=== PATIENT | male | born 1985 | race Caucasian/White ===

== ENCOUNTER 2023-03-13 18:31 | Observation (INO) ==
[2023-03-13] MEDS ORDERED: ONDANSETRON INJ 2 MG/ML 2 ML VIAL ONE (18:36)
--- NOTE | 2023-03-13 18:56 | XRay Report ---
XR chest 1V portable HISTORY: 38 years-old Male Chest pain, nonspecific acute chest pain COMPARISON: 11/08/2021 TECHNIQUE: AP view of the chest FINDINGS: Cardiac silhouette is enlarged. No pneumothorax, pleural effusion, airspace consolidation or pulmonar y edema. Bones appear grossly intact. IMPRESSION: No acute process. ACT 112: Negative or not required by law. The above report was generated using voice recognition software. It may contain grammatical, syntax o r spelling errors. Electronically signed by: Darci Mathur M.D. 03/13/2023 6:55 PM
[2023-03-13 19:03] LABS: iSTAT Hemoglobin 17.3 g/dl (14.0-18.0); iSTAT Ionized Calcium 1.13 mmol/l (1.12-1.32); iSTAT Potassium 3.4 mmol/L (3.3-5.0)
[2023-03-13 19:04] LABS: Basophils # (auto) 0.06 K/uL (0.00-0.20); Basophils % (auto) 0.4 %; Eosinophils # (auto) 0.26 K/uL (0.00-0.50); Eosinophils % (auto) 1.9 %; Hematocrit (blood only) 50.5 % (42.0-52.0); Hemoglobin 17.2 g/dl (14.0-18.0); Immature Granulocytes # (auto) 0.08 K/uL (0.01-0.20); Immature Granulocytes % (auto) 0.6 %; Lymphocytes # (auto) 2.64 K/uL (1.20-3.40); Mean Corpuscular Hemoglobin 28.6 pg (25.0-34.0); Mean Corpuscular Hgb Conc 34.1 g/dL (32.0-36.0); Mean Corpuscular Volume 83.9 fL (80.0-100.0); Mean Platelet Volume 9.9 fL (9.4-12.4); Monocytes # (auto) 0.85 K/uL (0.11-0.59); Monocytes % (auto) 6.1 %; Neutrophils # (auto) 10.04 K/uL (1.40-6.50); Platelet Count 338 K/uL (130-400); RDW Standard Deviation 39.7 fL (36.4-46.3); Red Blood Count 6.02 M/uL (4.70-6.10); White Blood Count 13.93 K/ul (4.8-10.8)
[2023-03-13 19:18] LABS: Alanine Aminotransferase 38 U/L (7-52); Albumin Globulin Ratio 1.7 (0.9-2); Albumin Level 4.8 gm/dl (3.4-5.0); Alkaline Phosphatase 68 U/L (34-104); Anion Gap 10 (3-11); Aspartate Aminotransferase 20 U/L (13-39); BUN Creatinine Ratio 7.9 (10-20); Bilirubin,Total 1.1 mg/dl (0.2-1.0); Blood Urea Nitrogen 8 mg/dl (6-23); Calcium 10.1 mg/dl (8.6-10.3); Carbon Dioxide 28 mmol/L (21-32); Chloride 98 mmol/L (98-107); Est GFR (African American) 110.4 ml/min; Est GFR (Non-African American) 95.2 ml/min; Globulin 2.9 gm/dl (2.5-4.0); Glucose 95 mg/dl (70-99(Fasting)); Magnesium 1.8 mg/dl (1.7-2.4); Potassium 3.4 mmol/L (3.5-5.1); Sodium 136 mmol/L (136-145); Total Protein 7.7 gm/dl (6.0-8.3)
--- NOTE | 2023-03-13 19:18 | Emergency Department Note ---
Impression & Plan Syncope and collapse, Episode of unresponsiveness, Acute hypokalemia, Leukocytosis, Elevated lactic acid level ED Provider Note HISTORY OF PRESENT ILLNESS: Patient is a 38-year-old male presenting with unresponsive episode. provides most of history. Reports that the patient had come into the kitchen this evening and was complaining of feeling lightheaded and dizzy and requested something to eat. She was making him food when he was seated at the dinner table and fell off the chair and landed on the ground. She reports that he was unresponsive for a few minutes and not responding to verbal or physical stimulus. States the patient came to and was complaining of left-sided headache and weakness and they were able to get him into the car and present here. Patient reportedly has had intermittent headaches for the last week. Patient stated that he felt like he was going to pass out earlier this evening. Denies any chest pain or shortness of breath. No drug or alcohol use. Patient denies any numbness or tingling in his extremities. He is complaining of generalized weakness. reports patient has no previous seizure history and did not have any seizure-like activity. ROS: as above PHYSICAL EXAM: Constitutional: Patient appears in no acute distress. HENT: Head: Normocephalic and atraumatic. Eyes: EOMI, PERRL Mouth/Throat: Mucous membranes moist. Neck: Trachea midline. Neck supple. Cardiovascular: RRR, No murmurs, rubs or gallops. Intact distal pulses. Pulmonary/Chest: No respiratory distress. Breath sounds clear and equal bilaterally. No wheezes or rales. Abdominal: Abdomen soft, no tenderness, rebound or guarding. Musculoskeletal: No edema, tenderness or deformity noted. Skin: Warm and dry. No rash, erythema, pallor or cyanosis Psychiatric: Appropriate mood and affect for situation. Neurological: Alert and keenly responsive. CN II-XII grossly intact, moving all extremities equally and fully. MDM: - Vitals signs showed hypertension. - History obtained via patient and patient's , given patient's presenting illness. Patient presents with unresponsive episode. states that the patient slumped over off of a kitchen chair earlier this evening and was minimally responsive to verbal or physical stimulus. He has been complaining of left-sided headache and weakness when he came to. He had difficulties getting into his car and was unable to get out of his vehicle on arrival to the ER. No chest pain or shortness of breath. He states he felt like he was in a pass out earlier today. - Chronic conditions affecting care: anxiety/depression - Differential diagnoses include, but are not limited to: intracranial hemorrhage; CVA; aortic dissection; ACS; pneumonia; electrolyte abnormality; seizure - Order placed for continuous cardiac monitoring. At this time, monitor showed rate of 71 bpm with normal sinus rhythm, per my interpretation. - External medical records reviewed. Primary care provider note dated 03/09/2023 was reviewed. Patient was seen for poison rose dermatitis. - EKG reviewed by myself showed normal sinus rhythm. Rate tachycardic at 102 bpm. QTc 414. No acute ischemic changes. - Laboratory workup interpreted by myself showed slight leukocytosis (WBC 13.93) with slight left shift; normal dimer; slight hypokalemia (K 3.4); elevated lactate (2.3); normal troponin; normal CK; negative ethanol - CT head wo contrast negative for acute intracranial pathology - CTA chest negative for PE or dissection - CXR negative for pneumonia, per my interpretation - Biofire negative - UA negative for infection. UDS negative - Patient given 1L NS and 4 mg IV zofran in ER. Given 1g IV tylenol for headache. - Patient had desaturations to 88% on room air while sleeping. He was placed on 2 L nasal cannula by nursing staff. - Discussed results with the patient and his at bedside. They report that the patient had an episode of vomiting that may have been blood-tinged just prior to arrival in the ER. Patient is still feeling very weak and lethargic. Unclear if the patient had a seizure, as did not report any seizure-like activity. Also unclear if he may have fully syncopized. Will admit for further work-up and monitoring. - Discussion was had with family day carer about patient's case and need for admission - Hospitalist consulted for admission - Patient admitted to [facility] Hospitalist service for further evaluation and management. 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 Psoriasis Surgical History History of arthroscopic knee surgery [place] teeth extracted Family History Mother Cancer Father Hearing loss Sister Allergies Other No family history of bleeding disorder Denies family history of Heart disease Hypertension Stroke Asthma Social History Smoking Status: Never smoker Tobacco Type: Cigarettes Age Started Using Tobacco: 20; Cigarettes Per Day: 2-3 cigs per day; Second Hand Exposure: No; Do You Dip or Chew Tobacco: No; Hx Alcohol Use: Yes Alcohol type: beer Alcohol Intake Frequency Comment: 1 beer once or twice a week Hx Substance Use: No Preferred Language: Guamanian Communication Ability: Effective Machine Tool Mechanic Required: No Beliefs That Will Affect Care: None marital status: Current Living Situation: Spouse and Family current occupational status: employed current occupation: Contractor Feels Safe at Home: Yes Assistive Devices: Glasses Allergies Allergies Allergy/AdvReac Type Severity Reaction Status Date / Time amoxicillin Allergy Unknown SEE COMMENT Verified 03/13/23 19:43 Cephalosporins Allergy Unknown CAN'T Verified 03/13/23 19:43 REMEMBER Sulfa (Sulfonamide Allergy Unknown CAN'T Verified 03/13/23 19:43 Antibiotics) REMEMBER Home Meds Home Medications Medication Instructions Recorded Confirmed buspirone 10 mg tablet 10 - 30 mg PO QAM PRN Anxiety 05/18/22 03/13/23 fluoxetine 10 mg capsule (Prozac) 20 mg PO QAM 05/18/22 03/13/23 Previous Rx's Medication Instructions Recorded nystatin 100,000 unit/gram topical See Rx Instructions topical 08/24/22 powder .COMPLEX #60 grams clobetasol 0.05 % topical cream 1 applic topical BID PRN Poison 03/01/23 rose reaction 2 weeks #30 grams prednisone 10 mg tablet See Rx Instructions PO DAILY #30 03/01/23 tabs Results & Data (ED) Vital Signs Vital Signs - 24 hr 03/13/23 18:39 03/13/23 18:52 03/13/23 18:52 Pulse Rate 89 Pulse Rate from SpO2 Sensor Pulse Rhythm Regular Pulse Strength Normal Respiratory Rate 20 Respiratory Effort / Characteristics Non-Labored Spontaneous Respiratory Depth Normal Blood Pressure 146/110 H Blood Pressure Mean 122 Pulse Oximetry 96 100 100 Oxygen Delivery Method Room Air Room Air Room Air Oxygen Flow Rate 0 Sepsis Recent Fever Within 48 Hours No Sepsis New/Unexplained Change in Mental Status No Sepsis Action Taken by Nursing No Action Required 03/13/23 18:59 03/13/23 18:59 03/13/23 19:00 Pulse Rate 88 71 Pulse Rate from SpO2 Sensor 70 Pulse Rhythm Pulse Strength Respiratory Rate 25 H Respiratory Effort / Characteristics Respiratory Depth Blood Pressure 152/99 H Blood Pressure Mean 114 Pulse Oximetry 99 Oxygen Delivery Method Oxygen Flow Rate Sepsis Recent Fever Within 48 Hours Sepsis New/Unexplained Change in Mental Status Sepsis Action Taken by Nursing 03/13/23 19:10 03/13/23 19:34 03/13/23 19:34 Pulse Rate 83 Pulse Rate from SpO2 Sensor 84 93 H Pulse Rhythm Pulse Strength Respiratory Rate 27 H 32 H Respiratory Effort / Characteristics Respiratory Depth Blood Pressure 142/92 H Blood Pressure Mean 103 Pulse Oximetry 98 100 Oxygen Delivery Method Oxygen Flow Rate Sepsis Recent Fever Within 48 Hours Sepsis New/Unexplained Change in Mental Status Sepsis Action Taken by Nursing 03/13/23 19:40 03/13/23 19:45 03/13/23 19:45 Pulse Rate 91 H 77 Pulse Rate from SpO2 Sensor 91 H 71 Pulse Rhythm Pulse Strength Respiratory Rate 22 17 Respiratory Effort / Characteristics Respiratory Depth Blood Pressure 139/97 Blood Pressure Mean 107 Pulse Oximetry 100 100 Oxygen Delivery Method Oxygen Flow Rate Sepsis Recent Fever Within 48 Hours Sepsis New/Unexplained Change in Mental Status Sepsis Action Taken by Nursing 03/13/23 19:50 03/13/23 20:00 03/13/23 20:00 Pulse Rate 77 75 Pulse Rate from SpO2 Sensor 77 76 Pulse Rhythm Pulse Strength Respiratory Rate 19 23 Respiratory Effort / Characteristics Respiratory Depth Blood Pressure 135/83 Blood Pressure Mean 99 Pulse Oximetry 100 87 L Oxygen Delivery Method Room Air Room Air Oxygen Flow Rate Sepsis Recent Fever Within 48 Hours Sepsis New/Unexplained Change in Mental Status Sepsis Action Taken by Nursing 03/13/23 20:10 03/13/23 20:15 03/13/23 20:15 Pulse Rate 72 73 Pulse Rate from SpO2 Sensor 72 67 Pulse Rhythm Pulse Strength Respiratory Rate 6 L 15 Respiratory Effort / Characteristics Respiratory Depth Blood Pressure 122/82 Blood Pressure Mean 91 Pulse Oximetry 97 98 Oxygen Delivery Method Nasal Cannula Oxygen Flow Rate 2 Sepsis Recent Fever Within 48 Hours Sepsis New/Unexplained Change in Mental Status Sepsis Action Taken by Nursing 03/13/23 20:20 03/13/23 20:30 03/13/23 20:30 Pulse Rate 81 75 Pulse Rate from SpO2 Sensor 82 75 Pulse Rhythm Pulse Strength Respiratory Rate 22 30 H Respiratory Effort / Characteristics Respiratory Depth Blood Pressure 135/83 Blood Pressure Mean 92 Pulse Oximetry 100 98 Oxygen Delivery Method Oxygen Flow Rate Sepsis Recent Fever Within 48 Hours Sepsis New/Unexplained Change in Mental Status Sepsis Action Taken by Nursing 03/13/23 20:40 03/13/23 20:45 03/13/23 20:45 Pulse Rate 74 68 Pulse Rate from SpO2 Sensor 74 70 Pulse Rhythm Pulse Strength Respiratory Rate 20 20 Respiratory Effort / Characteristics Respiratory Depth Blood Pressure 132/82 Blood Pressure Mean 98 Pulse Oximetry 98 97 Oxygen Delivery Method Oxygen Flow Rate Sepsis Recent Fever Within 48 Hours Sepsis New/Unexplained Change in Mental Status Sepsis Action Taken by Nursing 03/13/23 20:50 03/13/23 21:00 03/13/23 21:00 Pulse Rate 79 71 Pulse Rate from SpO2 Sensor 79 71 Pulse Rhythm Pulse Strength Respiratory Rate 19 17 Respiratory Effort / Characteristics Respiratory Depth Blood Pressure 136/82 Blood Pressure Mean 91 Pulse Oximetry 99 98 Oxygen Delivery Method Nasal Cannula Oxygen Flow Rate 2 Sepsis Recent Fever Within 48 Hours Sepsis New/Unexplained Change in Mental Status Sepsis Action Taken by Nursing 03/13/23 21:10 03/13/23 21:15 03/13/23 21:15 Pulse Rate 70 68 Pulse Rate from SpO2 Sensor 68 69 Pulse Rhythm Pulse Strength Respiratory Rate 18 18 Respiratory Effort / Characteristics Respiratory Depth Blood Pressure 138/84 Blood Pressure Mean 96 Pulse Oximetry 97 98 Oxygen Delivery Method Oxygen Flow Rate Sepsis Recent Fever Within 48 Hours Sepsis New/Unexplained Change in Mental Status Sepsis Action Taken by Nursing 03/13/23 21:20 03/13/23 21:30 03/13/23 21:30 Pulse Rate 81 74 Pulse Rate from SpO2 Sensor 79 73 Pulse Rhythm Pulse Strength Respiratory Rate 14 21 Respiratory Effort / Characteristics Respiratory Depth Blood Pressure 133/81 Blood Pressure Mean 93 Pulse Oximetry 99 99 Oxygen Delivery Method Oxygen Flow Rate Sepsis Recent Fever Within 48 Hours Sepsis New/Unexplained Change in Mental Status Sepsis Action Taken by Nursing 03/13/23 21:40 03/13/23 21:45 03/13/23 21:45 Pulse Rate 85 70 Pulse Rate from SpO2 Sensor 89 71 Pulse Rhythm Pulse Strength Respiratory Rate 15 21 Respiratory Effort / Characteristics Respiratory Depth Blood Pressure 129/81 Blood Pressure Mean 96 Pulse Oximetry 99 99 Oxygen Delivery Method Oxygen Flow Rate Sepsis Recent Fever Within 48 Hours Sepsis New/Unexplained Change in Mental Status Sepsis Action Taken by Nursing 03/13/23 21:50 03/13/23 22:00 03/13/23 22:00 Pulse Rate 79 78 Pulse Rate from SpO2 Sensor 79 76 Pulse Rhythm Pulse Strength Respiratory Rate 22 12 Respiratory Effort / Characteristics Respiratory Depth Blood Pressure 132/85 Blood Pressure Mean 97 Pulse Oximetry 99 99 Oxygen Delivery Method Oxygen Flow Rate Sepsis Recent Fever Within 48 Hours Sepsis New/Unexplained Change in Mental Status Sepsis Action Taken by Nursing 03/13/23 22:10 03/13/23 22:15 03/13/23 22:15 Pulse Rate 91 H 73 Pulse Rate from SpO2 Sensor 85 74 Pulse Rhythm Pulse Strength Respiratory Rate 12 12 Respiratory Effort / Characteristics Respiratory Depth Blood Pressure 125/87 Blood Pressure Mean 97 Pulse Oximetry 99 99 Oxygen Delivery Method Oxygen Flow Rate Sepsis Recent Fever Within 48 Hours Sepsis New/Unexplained Change in Mental Status Sepsis Action Taken by Nursing 03/13/23 22:20 03/13/23 22:30 03/13/23 22:30 Pulse Rate 72 69 Pulse Rate from SpO2 Sensor 72 71 Pulse Rhythm Pulse Strength Respiratory Rate 16 11 L Respiratory Effort / Characteristics Respiratory Depth Blood Pressure 128/84 Blood Pressure Mean 94 Pulse Oximetry 97 98 Oxygen Delivery Method Oxygen Flow Rate Sepsis Recent Fever Within 48 Hours Sepsis New/Unexplained Change in Mental Status Sepsis Action Taken by Nursing 03/13/23 22:40 03/13/23 22:45 03/13/23 22:45 Pulse Rate 78 71 Pulse Rate from SpO2 Sensor 80 72 Pulse Rhythm Pulse Strength Respiratory Rate 10 L 13 Respiratory Effort / Characteristics Respiratory Depth Blood Pressure 127/80 Blood Pressure Mean 94 Pulse Oximetry 97 97 Oxygen Delivery Method Oxygen Flow Rate Sepsis Recent Fever Within 48 Hours Sepsis New/Unexplained Change in Mental Status Sepsis Action Taken by Nursing 03/13/23 22:50 03/13/23 23:00 03/13/23 23:00 Pulse Rate 75 70 Pulse Rate from SpO2 Sensor 77 71 Pulse Rhythm Pulse Strength Respiratory Rate 20 13 Respiratory Effort / Characteristics Respiratory Depth Blood Pressure 126/86 Blood Pressure Mean 97 Pulse Oximetry 98 99 Oxygen Delivery Method Room Air Oxygen Flow Rate Sepsis Recent Fever Within 48 Hours Sepsis New/Unexplained Change in Mental Status Sepsis Action Taken by Nursing 03/13/23 23:05 03/13/23 23:10 03/13/23 23:15 Pulse Rate 72 83 Pulse Rate from SpO2 Sensor 79 Pulse Rhythm Pulse Strength Respiratory Rate 15 Respiratory Effort / Characteristics Respiratory Depth Blood Pressure 128/86 Blood Pressure Mean 102 Pulse Oximetry 99 Oxygen Delivery Method Oxygen Flow Rate Sepsis Recent Fever Within 48 Hours Sepsis New/Unexplained Change in Mental Status Sepsis Action Taken by Nursing 03/13/23 23:15 Pulse Rate 71 Pulse Rate from SpO2 Sensor 72 Pulse Rhythm Pulse Strength Respiratory Rate 14 Respiratory Effort / Characteristics Respiratory Depth Blood Pressure Blood Pressure Mean Pulse Oximetry 99 Oxygen Delivery Method Oxygen Flow Rate Sepsis Recent Fever Within 48 Hours Sepsis New/Unexplained Change in Mental Status Sepsis Action Taken by Nursing Laboratory Data 03/13/23 18:37 03/13/23 18:37 Lab Results 03/13/23 03/13/23 03/13/23 Range/Units 18:37 18:49 19:55 WBC 13.93 H (4.8-10.8) K/ul RBC 6.02 (4.70-6.10) M/uL Hgb 17.2 (14.0-18.0) g/dl POC Hgb 17.3 (14.0-18.0) g/dl Hct 50.5 (42.0-52.0) % POC Hct 51 (42-52) % MCV 83.9 (80.0-100.0) fL MCH 28.6 (25.0-34.0) pg MCHC 34.1 (32.0-36.0) g/dL RDW Std Deviation 39.7 (36.4-46.3) fL RDW Coeff of Roly 13.0 (11.5-14.5) % Plt Count 338 (130-400) K/uL MPV 9.9 (9.4-12.4) fL Immature Gran % (Auto) 0.6 % Neut % (Auto) 72.0 % Lymph % (Auto) 19.0 % Martin % (Auto) 6.1 % Eos % (Auto) 1.9 % Baso % (Auto) 0.4 % Neut # (Auto) 10.04 H (1.40-6.50) K/uL Lymph # (Auto) 2.64 (1.20-3.40) K/uL Martin # (Auto) 0.85 H (0.11-0.59) K/uL Eos # (Auto) 0.26 (0.00-0.50) K/uL Baso # (Auto) 0.06 (0.00-0.20) K/uL Immature Gran # (Auto) 0.08 (0.01-0.20) K/uL PT 12.2 H (9.0-12.0) Seconds INR 1.1 (0.9-1.1) APTT 27.2 (21.0-31.0) Seconds PTT Ratio 1.0 D-Dimer 210 (0-500) ug/L FEU POC Sodium 137 (135-144) mmol/L Sodium 136 (136-145) mmol/L POC Potassium 3.4 (3.3-5.0) mmol/L Potassium 3.4 L (3.5-5.1) mmol/L POC Chloride 97 L (101-112) mmol/L Chloride 98 (98-107) mmol/L Carbon Dioxide 28 (21-32) mmol/L POC Total CO2 25 (24-31) mmol/L Anion Gap 10 (3-11) POC Anion Gap 20.0 (16-25) mmol/L POC BUN 7 (7-18) mg/dl BUN 8 (6-23) mg/dl Creatinine 1.01 (0.6-1.4) mg/dl POC Creatinine 1.0 (0.6-1.3) mg/dl Est Cr Clr Drug Dosing Not Reportable Est GFR ( Amer) 110.4 ml/min Est GFR (Non-Af Amer) 95.2 ml/min BUN/Creatinine Ratio 7.9 L (10-20) Glucose 95 (70-99(Fasting)) mg/dl POC Glucose 97 (70-99) mg/dl POC Glucose (other) 100 H (70-99) mg/dl Lactate 2.3 H* (0.4-2.0) mmol/L Calcium 10.1 (8.6-10.3) mg/dl POC Ioniz Calcium [place] 1.13 (1.12-1.32) mmol/l Magnesium 1.8 (1.7-2.4) mg/dl Total Bilirubin 1.1 H (0.2-1.0) mg/dl AST 20 (13-39) U/L ALT 38 (7-52) U/L Alkaline Phosphatase 68 (34-104) U/L Total Creatine Kinase 93 (30-223) U/L Troponin I High Sens 2.4 (0-20) pg/ml Total Protein 7.7 (6.0-8.3) gm/dl Albumin 4.8 (3.4-5.0) gm/dl Globulin 2.9 (2.5-4.0) gm/dl Albumin/Globulin Ratio 1.7 (0.9-2) Urine Color Urine Appearance (Clear) Urine pH (4.5-7.5) Ur Specific [place] (1.000-1.030) Urine Protein (Negative) Urine Glucose (UA) (Negative) Urine Ketones (Negative) Urine Blood (Negative) Urine Nitrite (Negative) Urine Bilirubin (Negative) Urine Urobilinogen (Negative) Ur Leukocyte Esterase (Negative) Urine Opiates Screen (Neg) Ur Methadone, Qual (Neg) Urine Barbiturates (Neg) Ur Phencyclidine (PCP) (Neg) U Amphetamin/Meth Scrn (Neg) MDMA (Ecstasy) Screen (Neg) U Benzodiazepines Scrn (Neg) Ur Cocaine Metabolite (Neg) U Marijuana (THC) Screen (Neg) Ethyl Alcohol mg/dL (<10.0) mg/dl Adenovirus (PCR) (NotDetected) B. pertussis DNA (PCR) (NotDetected) B.parapertussis DNA PCR (NotDetected) C. pneumoniae DNA (PCR) (NotDetected) Coronavirus OC43 (PCR) (NotDetected) Coronavirus HKU1 (PCR) (NotDetected) Coronavirus 229E (PCR) (NotDetected) SARS-CoV-2 (PCR) (NotDetected) Coronavirus NL63 (PCR) (NotDetected) Human Metapneumovir PCR (NotDetected) Influenza Type A (PCR) (NotDetected) Influenza Type B (PCR) (NotDetected) M. pneumoniae (PCR) (NotDetected) Parainfluenza 1 (PCR) (NotDetected) Parainfluenza 2 (PCR) (NotDetected) Parainfluenza 3 (PCR) (NotDetected) Parainfluenza 4 (PCR) (NotDetected) RSV (PCR) (NotDetected) Entero/Rhino (PCR) (NotDetected) 03/13/23 03/13/23 03/13/23 Range/Units 20:55 21:05 21:06 WBC (4.8-10.8) K/ul RBC (4.70-6.10) M/uL Hgb (14.0-18.0) g/dl POC Hgb (14.0-18.0) g/dl Hct (42.0-52.0) % POC Hct (42-52) % MCV (80.0-100.0) fL MCH (25.0-34.0) pg MCHC (32.0-36.0) g/dL RDW Std Deviation (36.4-46.3) fL RDW Coeff of Roly (11.5-14.5) % Plt Count (130-400) K/uL MPV (9.4-12.4) fL Immature Gran % (Auto) % Neut % (Auto) % Lymph % (Auto) % Martin % (Auto) % Eos % (Auto) % Baso % (Auto) % Neut # (Auto) (1.40-6.50) K/uL Lymph # (Auto) (1.20-3.40) K/uL Martin # (Auto) (0.11-0.59) K/uL Eos # (Auto) (0.00-0.50) K/uL Baso # (Auto) (0.00-0.20) K/uL Immature Gran # (Auto) (0.01-0.20) K/uL PT (9.0-12.0) Seconds INR (0.9-1.1) APTT (21.0-31.0) Seconds PTT Ratio D-Dimer (0-500) ug/L FEU POC Sodium (135-144) mmol/L Sodium (136-145) mmol/L POC Potassium (3.3-5.0) mmol/L Potassium (3.5-5.1) mmol/L POC Chloride (101-112) mmol/L Chloride (98-107) mmol/L Carbon Dioxide (21-32) mmol/L POC Total CO2 (24-31) mmol/L Anion Gap (3-11) POC Anion Gap (16-25) mmol/L POC BUN (7-18) mg/dl BUN (6-23) mg/dl Creatinine (0.6-1.4) mg/dl POC Creatinine (0.6-1.3) mg/dl Est Cr Clr Drug Dosing Est GFR ( Amer) ml/min Est GFR (Non-Af Amer) ml/min BUN/Creatinine Ratio (10-20) Glucose (70-99(Fasting)) mg/dl POC Glucose (70-99) mg/dl POC Glucose (other) (70-99) mg/dl Lactate (0.4-2.0) mmol/L Calcium (8.6-10.3) mg/dl POC Ioniz Calcium [place] (1.12-1.32) mmol/l Magnesium (1.7-2.4) mg/dl Total Bilirubin (0.2-1.0) mg/dl AST (13-39) U/L ALT (7-52) U/L Alkaline Phosphatase (34-104) U/L Total Creatine Kinase (30-223) U/L Troponin I High Sens (0-20) pg/ml Total Protein (6.0-8.3) gm/dl Albumin (3.4-5.0) gm/dl Globulin (2.5-4.0) gm/dl Albumin/Globulin Ratio (0.9-2) Urine Color Yellow Urine Appearance Clear (Clear) Urine pH 7.5 (4.5-7.5) Ur Specific [place] 1.029 (1.000-1.030) Urine Protein Negative (Negative) Urine Glucose (UA) Negative (Negative) Urine Ketones Negative (Negative) Urine Blood Negative (Negative) Urine Nitrite Negative (Negative) Urine Bilirubin Negative (Negative) Urine Urobilinogen Negative (Negative) Ur Leukocyte Esterase Negative (Negative) Urine Opiates Screen Neg (Neg) Ur Methadone, Qual Neg (Neg) Urine Barbiturates Neg (Neg) Ur Phencyclidine (PCP) Neg (Neg) U Amphetamin/Meth Scrn Neg (Neg) MDMA (Ecstasy) Screen Neg (Neg) U Benzodiazepines Scrn Neg (Neg) Ur Cocaine Metabolite Neg (Neg) U Marijuana (THC) Screen Neg (Neg) Ethyl Alcohol mg/dL (<10.0) mg/dl Adenovirus (PCR) Not Detected (NotDetected) B. pertussis DNA (PCR) Not Detected (NotDetected) B.parapertussis DNA PCR Not Detected (NotDetected) C. pneumoniae DNA (PCR) Not Detected (NotDetected) Coronavirus OC43 (PCR) Not Detected (NotDetected) Coronavirus HKU1 (PCR) Not Detected (NotDetected) Coronavirus 229E (PCR) Not Detected (NotDetected) SARS-CoV-2 (PCR) Not Detected (NotDetected) Coronavirus NL63 (PCR) Not Detected (NotDetected) Human Metapneumovir PCR Not Detected (NotDetected) Influenza Type A (PCR) Not Detected (NotDetected) Influenza Type B (PCR) Not Detected (NotDetected) M. pneumoniae (PCR) Not Detected (NotDetected) Parainfluenza 1 (PCR) Not Detected (NotDetected) Parainfluenza 2 (PCR) Not Detected (NotDetected) Parainfluenza 3 (PCR) Not Detected (NotDetected) Parainfluenza 4 (PCR) Not Detected (NotDetected) RSV (PCR) Not Detected (NotDetected) Entero/Rhino (PCR) Not Detected (NotDetected) 03/13/23 03/13/23 Range/Units 21:23 23:15 WBC (4.8-10.8) K/ul RBC (4.70-6.10) M/uL Hgb (14.0-18.0) g/dl POC Hgb (14.0-18.0) g/dl Hct (42.0-52.0) % POC Hct (42-52) % MCV (80.0-100.0) fL MCH (25.0-34.0) pg MCHC (32.0-36.0) g/dL RDW Std Deviation (36.4-46.3) fL RDW Coeff of Roly (11.5-14.5) % Plt Count (130-400) K/uL MPV (9.4-12.4) fL Immature Gran % (Auto) % Neut % (Auto) % Lymph % (Auto) % Martin % (Auto) % Eos % (Auto) % Baso % (Auto) % Neut # (Auto) (1.40-6.50) K/uL Lymph # (Auto) (1.20-3.40) K/uL Martin # (Auto) (0.11-0.59) K/uL Eos # (Auto) (0.00-0.50) K/uL Baso # (Auto) (0.00-0.20) K/uL Immature Gran # (Auto) (0.01-0.20) K/uL PT (9.0-12.0) Seconds INR (0.9-1.1) APTT (21.0-31.0) Seconds PTT Ratio D-Dimer (0-500) ug/L FEU POC Sodium (135-144) mmol/L Sodium (136-145) mmol/L POC Potassium (3.3-5.0) mmol/L Potassium (3.5-5.1) mmol/L POC Chloride (101-112) mmol/L Chloride (98-107) mmol/L Carbon Dioxide (21-32) mmol/L POC Total CO2 (24-31) mmol/L Anion Gap (3-11) POC Anion Gap (16-25) mmol/L POC BUN (7-18) mg/dl BUN (6-23) mg/dl Creatinine (0.6-1.4) mg/dl POC Creatinine (0.6-1.3) mg/dl Est Cr Clr Drug Dosing Est GFR ( Amer) ml/min Est GFR (Non-Af Amer) ml/min BUN/Creatinine Ratio (10-20) Glucose (70-99(Fasting)) mg/dl POC Glucose (70-99) mg/dl POC Glucose (other) (70-99) mg/dl Lactate 1.3 (0.4-2.0) mmol/L Calcium (8.6-10.3) mg/dl POC Ioniz Calcium [place] (1.12-1.32) mmol/l Magnesium (1.7-2.4) mg/dl Total Bilirubin (0.2-1.0) mg/dl AST (13-39) U/L ALT (7-52) U/L Alkaline Phosphatase (34-104) U/L Total Creatine Kinase (30-223) U/L Troponin I High Sens (0-20) pg/ml Total Protein (6.0-8.3) gm/dl Albumin (3.4-5.0) gm/dl Globulin (2.5-4.0) gm/dl Albumin/Globulin Ratio (0.9-2) Urine Color Urine Appearance (Clear) Urine pH (4.5-7.5) Ur Specific [place] (1.000-1.030) Urine Protein (Negative) Urine Glucose (UA) (Negative) Urine Ketones (Negative) Urine Blood (Negative) Urine Nitrite (Negative) Urine Bilirubin (Negative) Urine Urobilinogen (Negative) Ur Leukocyte Esterase (Negative) Urine Opiates Screen (Neg) Ur Methadone, Qual (Neg) Urine Barbiturates (Neg) Ur Phencyclidine (PCP) (Neg) U Amphetamin/Meth Scrn (Neg) MDMA (Ecstasy) Screen (Neg) U Benzodiazepines Scrn (Neg) Ur Cocaine Metabolite (Neg) U Marijuana (THC) Screen (Neg) Ethyl Alcohol mg/dL < 10.0 (<10.0) mg/dl Adenovirus (PCR) (NotDetected) B. pertussis DNA (PCR) (NotDetected) B.parapertussis DNA PCR (NotDetected) C. pneumoniae DNA (PCR) (NotDetected) Coronavirus OC43 (PCR) (NotDetected) Coronavirus HKU1 (PCR) (NotDetected) Coronavirus 229E (PCR) (NotDetected) SARS-CoV-2 (PCR) (NotDetected) Coronavirus NL63 (PCR) (NotDetected) Human Metapneumovir PCR (NotDetected) Influenza Type A (PCR) (NotDetected) Influenza Type B (PCR) (NotDetected) M. pneumoniae (PCR) (NotDetected) Parainfluenza 1 (PCR) (NotDetected) Parainfluenza 2 (PCR) (NotDetected) Parainfluenza 3 (PCR) (NotDetected) Parainfluenza 4 (PCR) (NotDetected) RSV (PCR) (NotDetected) Entero/Rhino (PCR) (NotDetected) Administered Medications Discontinued Medications Sodium Chloride (Nss) 1,000 mls @ 999 mls/hr IV .Q1H1M ONE Stop: 03/13/23 20:42 Last Infusion: 03/13/23 21:07 Dose: Infused Documented By: Admin: 03/13/23 19:59 Dose: 999 mls/hr Documented By: ELI Acetaminophen (Ofirmev) 1,000 mg in 100 mls @ 400 mls/hr IV NOW STA Stop: 03/13/23 19:56 Last Infusion: 03/13/23 21:06 Dose: Infused Documented By: Admin: 03/13/23 19:59 Dose: 400 mls/hr Documented By: ELI Ioversol (Optiray 320 500ml) 105 ml IV ONCE ONE Stop: 03/13/23 19:22 Last Admin: 03/13/23 19:21 Dose: 105 ml Documented By: GRETEL Ondansetron HCl (Ondansetron Inj 2 Mg/Ml 2 Ml Vial) Confirm Administered Dose 4 mg .ROUTE .STK-MED ONE Stop: 03/13/23 18:37 Last Admin: 03/13/23 18:48 Dose: 4 mg Documented By: HS Imaging Data Radiologist's Impression: Chest X-Ray 03/13/23 18:36 XR chest 1V portable HISTORY: 38 years-old Male Chest pain, nonspecific acute chest pain COMPARISON: 11/08/2021 TECHNIQUE: AP view of the chest FINDINGS: Cardiac silhouette is enlarged. No pneumothorax, pleural effusion, airspace consolidation or pulmonary edema. Bones appear grossly intact. IMPRESSION: No acute process. ACT 112: Negative or not required by law. The above report was generated using voice recognition software. It may contain grammatical, syntax or spelling errors. Electronically signed by: Darci Mathur M.D. 03/13/2023 6:55 PM Chest CTA 03/13/23 19:13 Exam(s): CTA CHEST W/WO Contrast IV Amt: 105 ml opti 320 EXAM: CT Angiography Chest Without and With Intravenous Contrast CLINICAL HISTORY: Reason for exam: syncope; back pain; weakness. TECHNIQUE: Axial computed tomographic angiography images of the chest without and with intravenous contrast. CTDI is 28.14 mGy and DLP is 1021.39 mGy-cm. Automated exposure control was utilized for the study. A dose lowering technique was utilized adhering to the principles of ALARA. MIP reconstructed images were created and reviewed. CONTRAST: Patient received 105 ml opti 320 of IV contrast COMPARISON: No relevant prior studies available. FINDINGS: Pulmonary arteries: Unremarkable. No pulmonary embolism. Aorta: No acute findings. No thoracic aortic aneurysm. Lungs: Unremarkable. No mass. No consolidation. Pleural space: Unremarkable. No significant effusion. No pneumothorax. Heart: Unremarkable. No cardiomegaly. No significant pericardial effusion. No evidence of RV dysfunction. Bones/joints: No acute fracture. No dislocation. Soft tissues: Unremarkable. Lymph nodes: Unremarkable. No enlarged lymph nodes. IMPRESSION: Normal chest CTA. No pulmonary embolism. Electronically signed by: Facundo Nair MD 03/13/23 20:[address] 03/13/23 19:13 Exam(s): CT HEAD Without Contrast EXAM: CT Head Without Intravenous Contrast CLINICAL HISTORY: Reason for exam: headache; weakness. TECHNIQUE: Axial computed tomography images of the head/brain without intravenous contrast. CTDI is 37.01 mGy and DLP is 624.41 mGy-cm. Automated exposure control was utilized for the study. A dose lowering technique was utilized adhering to the principles of ALARA. COMPARISON: No relevant prior studies available. FINDINGS: No acute intracranial hemorrhage. No midline shift or mass effect. The territorial zamudio-white matter differentiation is maintained throughout. The ventricles and sulci are commensurate with age. The visualized orbits appear grossly unremarkable. The calvarium is intact. The visualized paranasal sinuses and mastoid air cells are grossly clear. IMPRESSION: No acute intracranial hemorrhage, midline shift, or mass effect. Electronically signed by: Facundo Nair MD 03/13/23 20:03 PM Discharge Plan Visit Data Chief Complaint: Syncope Stated Complaint: LOST CONSCIOUSSNESS ED Provider: Tram Chirinos Discharge Problem: Syncope and collapse, Episode of unresponsiveness, Acute hypokalemia, Leukocytosis, Elevated lactic acid level Forms Stand Alone Forms: My [facility] [employer] Prescriptions Prescriptions: No Action prednisone 10 mg tablet See Rx Instructions PO DAILY Qty: 30 0RF Rx Instructions: 40mg(4 tab)[id number],30mg(3tab)[id number],20mg(2tab)x3day,10mg(1tab)x3day clobetasol 0.05 % cream 1 applic topical BID PRN (Reason: Poison rose reaction) 14 Days Qty: 30 0RF Rx Instructions: apply to rash associated with poison rose twice a day nystatin 100,000 unit/gram powder See Rx Instructions topical .COMPLEX Qty: 60 1RF Rx Instructions: Apply a light dusting to groin folds and axilla q AM x 7-10 days topically; buspirone 10 mg tablet 10 - 30 mg PO QAM PRN (Reason: Anxiety) fluoxetine [Prozac] 10 mg capsule 20 mg PO QAM Rx Instructions: administer in the morning and at noon/midday Rx per psychiatry (Dr Stone) Referrals Referrals: Aura Apple MD [Primary Care Provider] -
[2023-03-13] MEDS ORDERED: OPTIRAY 320 500ml IV ONE (19:21)
[2023-03-13 19:25] LABS: Troponin I High Sensitivity 2.4 pg/ml (0-20)
[2023-03-13 19:41] LABS: Creatine Kinase 93 U/L (30-223); D Dimer 210 ug/L FEU (0-500); INR 1.1 (0.9-1.1); Partial Thromboplastin Time 27.2 Seconds (21.0-31.0); Prothrombin Time 12.2 Seconds (9.0-12.0)
[2023-03-13] MEDS ORDERED: ACETAMINOPHEN 1,000 MG/100 ML VIAL IV STA (19:42)
[2023-03-13] MEDS ORDERED: SODIUM CHLORIDE 0.9% 1,000 ML IV ONE (19:42)
--- NOTE | 2023-03-13 20:05 | CT Scan Report ---
Exam(s): CT HEAD Without Contrast EXAM: CT Head Without Intravenous Contrast CLINICAL HISTORY: Reason for exam: headache; weakness. TECHNIQUE: Axial computed tomography images of the head/brain without intravenous contrast. CTDI is 37.01 mGy and DLP is 624.41 mGy-cm. Automated exposure control was utilized for the study. A dose lowering technique was utilized adhering to the principles of ALARA. COMPARISON: No relevant prior studies available. FINDINGS: No acute intracranial hemorrhage. No midline shift or mass effect. The territorial zamudio-white matter differentiation is maintained throughout. The ventricles and sulci are commensurate with age. The visualized orbits appear grossly unremarkable. The calvarium is intact. The visualized paranasal sinuses and mastoid air cells are grossly clear. IMPRESSION: No acute intracranial hemorrhage, midline shift, or mass effect. Electronically signed by: Facundo Nair MD 03/13/23 20:03 PM
--- NOTE | 2023-03-13 20:15 | CT Scan Report ---
Exam(s): CTA CHEST W/WO Contrast IV Amt: 105 ml opti 320 EXAM: CT Angiography Chest Without and With Intravenous Contrast CLINICAL HISTORY: Reason for exam: syncope; back pain; weakness. TECHNIQUE: Axial computed tomographic angiography images of the chest without and with intravenous contrast. CTDI is 28.14 mGy and DLP is 1021.39 mGy-cm. Automated exposure control was utilized for the study. A dose lowering technique was utilized adhering to the principles of ALARA. MIP reconstructed images were created and reviewed. CONTRAST: Patient received 105 ml opti 320 of IV contrast COMPARISON: No relevant prior studies available. FINDINGS: Pulmonary arteries: Unremarkable. No pulmonary embolism. Aorta: No acute findings. No thoracic aortic aneurysm. Lungs: Unremarkable. No mass. No consolidation. Pleural space: Unremarkable. No significant effusion. No pneumothorax. Heart: Unremarkable. No cardiomegaly. No significant pericardial effusion. No evidence of RV dysfunction. Bones/joints: No acute fracture. No dislocation. Soft tissues: Unremarkable. Lymph nodes: Unremarkable. No enlarged lymph nodes. IMPRESSION: Normal chest CTA. No pulmonary embolism. Electronically signed by: Facundo Nair MD 03/13/23 20:14 PM
[2023-03-13 21:14] LABS: Appearance Urine Clear (Clear); Bilirubin Urine Negative (Negative); Blood Urine Negative (Negative); Color Urine Yellow; Glucose Urine UA Negative (Negative); Ketones Urine Negative (Negative); Leukocyte Esterase Urine Negative (Negative); Nitrite Urine Negative (Negative); Protein Urine Negative (Negative); Specific Gravity Urine 1.029 (1.000-1.030); Urobilinogen Urine Negative (Negative); pH Urine 7.5 (4.5-7.5)
[2023-03-13 21:41] LABS: Amphetamines+Metham, Urine Neg (Neg); Barbiturates, Urine Neg (Neg); Benzodiazepine, Urine Neg (Neg); Cocaine, Urine Neg (Neg); MDMA (Ecstacy), Urine Neg (Neg); Methadone, Urine Neg (Neg); Opiate, Urine Neg (Neg); Phencyclidine, Urine Neg (Neg)
[2023-03-13 22:15] LABS: Adenovirus PCR Not Detected (NotDetected); Bordetella parapertussis PCR Not Detected (NotDetected); Bordetella pertussis PCR Not Detected (NotDetected); Chlamydia pneumoniae PCR Not Detected (NotDetected); Coronavirus 229E PCR Not Detected (NotDetected); Coronavirus CoV-2 (COVID19)PCR Not Detected (NotDetected); Coronavirus HKU1 PCR Not Detected (NotDetected); Coronavirus NL63 PCR Not Detected (NotDetected); Coronavirus OC43PCR Not Detected (NotDetected); Human Metapneumovirus PCR Not Detected (NotDetected); Influenza A PCR Not Detected (NotDetected); Influenza B PCR Not Detected (NotDetected); Mycoplasma pneumoniae PCR Not Detected (NotDetected); Parainfluenza Virus 1 PCR Not Detected (NotDetected); Parainfluenza Virus 2 PCR Not Detected (NotDetected); Parainfluenza Virus 3 PCR Not Detected (NotDetected); Parainfluenza Virus 4 PCR Not Detected (NotDetected); Respiratory Syncytial VirusPCR Not Detected (NotDetected); Rhinovirus/Enterovirus PCR Not Detected (NotDetected)
--- NOTE | 2023-03-14 00:27 | History & Physical Report ---
Date of Service March 14, 2023 Assessment & Plan (1) Episode of unresponsiveness: Plan: 38-year-old male presenting with episode of unresponsiveness. He does report a prodrome of nausea, lightheadedness and fatigue. Suspect vasovagal syncope. Patient also reports episode of vomiting with possible blood as well as some epigastric discomfort. Of note, he did just complete a 2-week course of steroids for poison rose. No chest pain, palpitations or neurological deficits. EKG with normal intervals, waveforms and no ectopy. Observation to medical telemetry Check orthostatic vital signs x1 Check Hemoccult stool x1 Treat with Protonix 40 mg IV daily History of Present Illness Chief Complaint: Unresponsive episode Primary Care Provider: Aura Apple MD Ryan Hussein is a 38-year-old male with history of psoriasis and anxiety presenting with an unresponsive episode. Patient reports that he was having waves of nausea throughout the day which were resolved by sitting down as well as episodes of dizziness. When he returned home from work this evening he sat down on the couch then became nauseated and lightheaded and fell over in the living room. His reports that he did lose consciousness briefly. No seizure activity reported. Patient presently complaining of epigastric pain. He has had vomiting as well with question of bloody emesis. Also with left-sided headache. He reports he is feeling exhausted with no energy. Patient denies chest pain, palpitations, visual changes or focal deficits. Denies fevers/chills. Allergies Allergy/AdvReac Type Severity Reaction Status Date / Time amoxicillin Allergy Unknown SEE COMMENT Verified 03/13/23 19:43 Cephalosporins Allergy Unknown CAN'T Verified 03/13/23 19:43 REMEMBER Sulfa (Sulfonamide Allergy Unknown CAN'T Verified 03/13/23 19:43 Antibiotics) REMEMBER Home Medications Medication Instructions Recorded Confirmed Type buspirone 10 mg tablet 10 - 30 mg PO QAM PRN Anxiety 05/18/22 03/13/23 History fluoxetine 10 mg capsule (Prozac) 20 mg PO QAM 05/18/22 03/13/23 History nystatin 100,000 unit/gram topical See Rx Instructions topical 08/24/22 03/13/23 Rx powder .COMPLEX #60 grams clobetasol 0.05 % topical cream 1 applic topical BID PRN Poison 03/01/23 03/13/23 Rx rose reaction 2 weeks #30 grams prednisone 10 mg tablet See Rx Instructions PO DAILY #30 03/01/23 03/13/23 Rx tabs Past Med/Surg History Medical History Psoriasis Anxiety and depression on meds History of COVID-19 hx-asymptomatic; + test on 05/22/20, tested prior to sx. 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 follows with ENT Surgical History History of arthroscopic knee surgery L knee scope 06/2020 [place] teeth extracted Family History Mother Cancer Father Hearing loss Sister Allergies Other No family history of bleeding disorder Denies family history of Heart disease Hypertension Stroke Asthma Social History Smoking Status: Former smoker Tobacco Type: Cigarettes Age Started Using Tobacco: 20; Cigarettes Per Day: 2-3 cigs per day; Second Hand Exposure: No; Do You Dip or Chew Tobacco: No; Hx Alcohol Use: Yes Alcohol type: beer Alcohol Intake Frequency Comment: 1 beer once or twice a week Hx Substance Use: No Preferred Language: Faroese Communication Ability: Effective Compensation Analyst Required: No Beliefs That Will Affect Care: None marital status: Current Living Situation: Spouse and Family current occupational status: employed current occupation: Contractor Other Information That Helps Us Care for You: No Feels Safe at Home: Yes Safety Concerns: Feels Safe At This Time Assistive Devices: None Review of Systems Review of Systems: All systems reviewed & are unremarkable except as noted in HPI & below Physical Exam Physical Exam: General: patient resting comfortably, NAD, non-toxic in appearance, AA&O x 4 Skin: warm, dry, intact, no rashes or lesions HEENT: NC/AT, PERRL, EOMI, anicteric sclera, conjunctiva without injection, external ear normal to inspection and nontender, nares patent, moist mucus membranes, dentition intact, no oropharyngeal lesions, neck supple, trachea midline, no LAD, no thyromegaly, no JVD Heart: +S1/S2, regular, no m/r/g Lungs: equal air entry bilaterally, no rales/rhonchi/wheezes Abd: +BS, soft, NT/ND, no masses/organomegaly/ascites Ext: warm, 2+ pulses in UE/LE bilaterally, no clubbing/cyanosis or edema Neuro: nonfocal, patient AA&O x 4, speech intact, no facial droop, moving all extremities on command with equal strength 5/5 Results & Data Results & Data Vital Signs (Past 12 Hours) Vital Signs Pulse Resp BP Pulse Ox O2 Del Method O2 Flow Rate 03/13/23 23:15 71 14 99 03/13/23 23:15 128/86 03/13/23 23:10 83 15 99 03/13/23 23:05 72 03/13/23 23:00 126/86 03/13/23 23:00 70 13 99 Room Air 03/13/23 22:50 75 20 98 03/13/23 22:45 71 13 97 03/13/23 22:45 127/80 03/13/23 22:40 78 10 L 97 03/13/23 22:30 69 11 L 98 03/13/23 22:30 128/84 03/13/23 22:20 72 16 97 03/13/23 22:15 73 12 99 03/13/23 22:15 125/87 03/13/23 22:10 91 H 12 99 03/13/23 22:00 78 12 99 03/13/23 22:00 132/85 03/13/23 21:50 79 22 99 03/13/23 21:45 70 21 99 03/13/23 21:45 129/81 03/13/23 21:40 85 15 99 03/13/23 21:30 74 21 99 03/13/23 21:30 133/81 03/13/23 21:20 81 14 99 03/13/23 21:15 68 18 98 03/13/23 21:15 138/84 03/13/23 21:10 70 18 97 03/13/23 21:00 71 17 98 03/13/23 21:00 136/82 03/13/23 20:50 79 19 99 Nasal Cannula 2 03/13/23 20:45 68 20 97 03/13/23 20:45 132/82 03/13/23 20:40 74 20 98 03/13/23 20:30 75 30 H 98 03/13/23 20:30 135/83 03/13/23 20:20 81 22 100 03/13/23 20:15 73 15 98 03/13/23 20:15 122/82 03/13/23 20:10 72 6 L 97 Nasal Cannula 2 03/13/23 20:00 75 23 87 L Room Air 03/13/23 20:00 135/83 03/13/23 19:50 77 19 100 Room Air 03/13/23 19:45 77 17 100 03/13/23 19:45 139/97 03/13/23 19:40 91 H 22 100 03/13/23 19:34 32 H 100 03/13/23 19:34 142/92 H 03/13/23 19:10 83 27 H 98 03/13/23 19:00 71 25 H 99 03/13/23 18:59 152/99 H 03/13/23 18:59 88 03/13/23 18:52 100 Room Air 03/13/23 18:52 100 Room Air 0 03/13/23 18:39 89 20 146/110 H 96 Room Air Laboratory Results Laboratory Results WBC 13.93 K/ul (4.8-10.8) H 03/13/23 18:37 RBC 6.02 M/uL (4.70-6.10) 03/13/23 18:37 Hgb 17.2 g/dl (14.0-18.0) 03/13/23 18:37 POC Hgb 17.3 g/dl (14.0-18.0) 03/13/23 18:49 Hct 50.5 % (42.0-52.0) 03/13/23 18:37 POC Hct 51 % (42-52) 03/13/23 18:49 MCV 83.9 fL (80.0-100.0) 03/13/23 18:37 MCH 28.6 pg (25.0-34.0) 03/13/23 18:37 MCHC 34.1 g/dL (32.0-36.0) 03/13/23 18:37 RDW Std Deviation 39.7 fL (36.4-46.3) 03/13/23 18:37 RDW Coeff of Roly 13.0 % (11.5-14.5) 03/13/23 18:37 Plt Count 338 K/uL (130-400) 03/13/23 18:37 MPV 9.9 fL (9.4-12.4) 03/13/23 18:37 Immature Gran % (Auto) 0.6 % 03/13/23 18:37 Neut % (Auto) 72.0 % 03/13/23 18:37 Lymph % (Auto) 19.0 % 03/13/23 18:37 Hartley % (Auto) 6.1 % 03/13/23 18:37 Eos % (Auto) 1.9 % 03/13/23 18:37 Baso % (Auto) 0.4 % 03/13/23 18:37 Neut # (Auto) 10.04 K/uL (1.40-6.50) H 03/13/23 18:37 Lymph # (Auto) 2.64 K/uL (1.20-3.40) 03/13/23 18:37 Hartley # (Auto) 0.85 K/uL (0.11-0.59) H 03/13/23 18:37 Eos # (Auto) 0.26 K/uL (0.00-0.50) 03/13/23 18:37 Baso # (Auto) 0.06 K/uL (0.00-0.20) 03/13/23 18:37 Immature Gran # (Auto) 0.08 K/uL (0.01-0.20) 03/13/23 18:37 PT 12.2 Seconds (9.0-12.0) H 03/13/23 18:37 INR 1.1 (0.9-1.1) 03/13/23 18:37 APTT 27.2 Seconds (21.0-31.0) 03/13/23 18:37 PTT Ratio 1.0 03/13/23 18:37 D-Dimer 210 ug/L FEU (0-500) 03/13/23 18:37 POC Sodium 137 mmol/L (135-144) 03/13/23 18:49 Sodium 136 mmol/L (136-145) 03/13/23 18:37 POC Potassium 3.4 mmol/L (3.3-5.0) 03/13/23 18:49 Potassium 3.4 mmol/L (3.5-5.1) L 03/13/23 18:37 POC Chloride 97 mmol/L (101-112) L 03/13/23 18:49 Chloride 98 mmol/L (98-107) 03/13/23 18:37 Carbon Dioxide 28 mmol/L (21-32) 03/13/23 18:37 POC Total CO2 25 mmol/L (24-31) 03/13/23 18:49 Anion Gap 10 (3-11) 03/13/23 18:37 POC Anion Gap 20.0 mmol/L (16-25) 03/13/23 18:49 POC BUN 7 mg/dl (7-18) 03/13/23 18:49 BUN 8 mg/dl (6-23) 03/13/23 18:37 Creatinine 1.01 mg/dl (0.6-1.4) 03/13/23 18:37 POC Creatinine 1.0 mg/dl (0.6-1.3) 03/13/23 18:49 Est Cr Clr Drug Dosing Not Reportable 03/13/23 18:37 Est GFR ( Amer) 110.4 ml/min 03/13/23 18:37 Est GFR (Non-Af Amer) 95.2 ml/min 03/13/23 18:37 BUN/Creatinine Ratio 7.9 (10-20) L 03/13/23 18:37 Glucose 95 mg/dl (70-99(Fasting)) 03/13/23 18:37 POC Glucose 97 mg/dl (70-99) 03/13/23 18:37 POC Glucose (other) 100 mg/dl (70-99) H 03/13/23 18:49 Lactate 1.3 mmol/L (0.4-2.0) 03/13/23 23:15 Calcium 10.1 mg/dl (8.6-10.3) 03/13/23 18:37 POC Ioniz Calcium Landon 1.13 mmol/l (1.12-1.32) 03/13/23 18:49 Magnesium 1.9 mg/dl (1.7-2.4) 03/13/23 Unknown Total Bilirubin 1.1 mg/dl (0.2-1.0) H 03/13/23 18:37 AST 20 U/L (13-39) 03/13/23 18:37 ALT 38 U/L (7-52) 03/13/23 18:37 Alkaline Phosphatase 68 U/L (34-104) 03/13/23 18:37 Total Creatine Kinase 93 U/L (30-223) 03/13/23 18:37 Troponin I High Sens 2.4 pg/ml (0-20) 03/13/23 18:37 Total Protein 7.7 gm/dl (6.0-8.3) 03/13/23 18:37 Albumin 4.8 gm/dl (3.4-5.0) 03/13/23 18:37 Globulin 2.9 gm/dl (2.5-4.0) 03/13/23 18:37 Albumin/Globulin Ratio 1.7 (0.9-2) 03/13/23 18:37 Lipase 30 U/L (11-82) 03/13/23 Unknown Urine Color Yellow 03/13/23 21:05 Urine Appearance Clear (Clear) 03/13/23 21:05 Urine pH 7.5 (4.5-7.5) 03/13/23 21:05 Ur Specific Larsen 1.029 (1.000-1.030) 03/13/23 21:05 Urine Protein Negative (Negative) 03/13/23 21:05 Urine Glucose (UA) Negative (Negative) 03/13/23 21:05 Urine Ketones Negative (Negative) 03/13/23 21:05 Urine Blood Negative (Negative) 03/13/23 21:05 Urine Nitrite Negative (Negative) 03/13/23 21:05 Urine Bilirubin Negative (Negative) 03/13/23 21:05 Urine Urobilinogen Negative (Negative) 03/13/23 21:05 Ur Leukocyte Esterase Negative (Negative) 03/13/23 21:05 Urine Opiates Screen Neg (Neg) 03/13/23 21:06 Ur Methadone, Qual Neg (Neg) 03/13/23 21:06 Urine Barbiturates Neg (Neg) 03/13/23 21:06 Ur Phencyclidine (PCP) Neg (Neg) 03/13/23 21:06 U Amphetamin/Meth Scrn Neg (Neg) 03/13/23 21:06 MDMA (Ecstasy) Screen Neg (Neg) 03/13/23 21:06 U Benzodiazepines Scrn Neg (Neg) 03/13/23 21:06 Ur Cocaine Metabolite Neg (Neg) 03/13/23 21:06 U Marijuana (THC) Screen Neg (Neg) 03/13/23 21:06 Ethyl Alcohol mg/dL < 10.0 mg/dl (<10.0) 03/13/23 21:23 Adenovirus (PCR) Not Detected (NotDetected) 03/13/23 20:55 B. pertussis DNA (PCR) Not Detected (NotDetected) 03/13/23 20:55 B.parapertussis DNA PCR Not Detected (NotDetected) 03/13/23 20:55 C. pneumoniae DNA (PCR) Not Detected (NotDetected) 03/13/23 20:55 Coronavirus OC43 (PCR) Not Detected (NotDetected) 03/13/23 20:55 Coronavirus HKU1 (PCR) Not Detected (NotDetected) 03/13/23 20:55 Coronavirus 229E (PCR) Not Detected (NotDetected) 03/13/23 20:55 SARS-CoV-2 (PCR) Not Detected (NotDetected) 03/13/23 20:55 Coronavirus NL63 (PCR) Not Detected (NotDetected) 03/13/23 20:55 Human Metapneumovir PCR Not Detected (NotDetected) 03/13/23 20:55 Influenza Type A (PCR) Not Detected (NotDetected) 03/13/23 20:55 Influenza Type B (PCR) Not Detected (NotDetected) 03/13/23 20:55 M. pneumoniae (PCR) Not Detected (NotDetected) 03/13/23 20:55 Parainfluenza 1 (PCR) Not Detected (NotDetected) 03/13/23 20:55 Parainfluenza 2 (PCR) Not Detected (NotDetected) 03/13/23 20:55 Parainfluenza 3 (PCR) Not Detected (NotDetected) 03/13/23 20:55 Parainfluenza 4 (PCR) Not Detected (NotDetected) 03/13/23 20:55 RSV (PCR) Not Detected (NotDetected) 03/13/23 20:55 Entero/Rhino (PCR) Not Detected (NotDetected) 03/13/23 20:55 Impressions Chest X-Ray 03/13/23 18:36 XR chest 1V portable HISTORY: 38 years-old Male Chest pain, nonspecific acute chest pain COMPARISON: 11/08/2021 TECHNIQUE: AP view of the chest FINDINGS: Cardiac silhouette is enlarged. No pneumothorax, pleural effusion, airspace consolidation or pulmonary edema. Bones appear grossly intact. IMPRESSION: No acute process. ACT 112: Negative or not required by law. The above report was generated using voice recognition software. It may contain grammatical, syntax or spelling errors. Electronically signed by: Darci Mathur M.D. 03/13/2023 6:55 PM Chest CTA 03/13/23 19:13 Exam(s): CTA CHEST W/WO Contrast IV Amt: 105 ml opti 320 EXAM: CT Angiography Chest Without and With Intravenous Contrast CLINICAL HISTORY: Reason for exam: syncope; back pain; weakness. TECHNIQUE: Axial computed tomographic angiography images of the chest without and with intravenous contrast. CTDI is 28.14 mGy and DLP is 1021.39 mGy-cm. Automated exposure control was utilized for the study. A dose lowering technique was utilized adhering to the principles of ALARA. MIP reconstructed images were created and reviewed. CONTRAST: Patient received 105 ml opti 320 of IV contrast COMPARISON: No relevant prior studies available. FINDINGS: Pulmonary arteries: Unremarkable. No pulmonary embolism. Aorta: No acute findings. No thoracic aortic aneurysm. Lungs: Unremarkable. No mass. No consolidation. Pleural space: Unremarkable. No significant effusion. No pneumothorax. Heart: Unremarkable. No cardiomegaly. No significant pericardial effusion. No evidence of RV dysfunction. Bones/joints: No acute fracture. No dislocation. Soft tissues: Unremarkable. Lymph nodes: Unremarkable. No enlarged lymph nodes. IMPRESSION: Normal chest CTA. No pulmonary embolism. Electronically signed by: Facundo Nair MD 03/13/23 20:[address] 03/13/23 19:13 Exam(s): CT HEAD Without Contrast EXAM: CT Head Without Intravenous Contrast CLINICAL HISTORY: Reason for exam: headache; weakness. TECHNIQUE: Axial computed tomography images of the head/brain without intravenous contrast. CTDI is 37.01 mGy and DLP is 624.41 mGy-cm. Automated exposure control was utilized for the study. A dose lowering technique was utilized adhering to the principles of ALARA. COMPARISON: No relevant prior studies available. FINDINGS: No acute intracranial hemorrhage. No midline shift or mass effect. The territorial zamudio-white matter differentiation is maintained throughout. The ventricles and sulci are commensurate with age. The visualized orbits appear grossly unremarkable. The calvarium is intact. The visualized paranasal sinuses and mastoid air cells are grossly clear. IMPRESSION: No acute intracranial hemorrhage, midline shift, or mass effect. Electronically signed by: Facundo Nair MD 03/13/23 20:03 PM PG Care Time/CCT Total # of Minutes Spent Total Time Spent with Patient: Total time spent is greater than 50% in coordination of care (as documented) at patient's floor/unit and/or counseling patient: Coding Level of Care Code 59673 INT INP/OBS CARE 2/55MIN Diagnoses Episode of unresponsiveness R40.4
[2023-03-14] MEDS ORDERED: POTASSIUM CHLORIDE CRTAB 20 MEQ TABCR PO STA (01:33)
[2023-03-14] MEDS ORDERED: ONDANSETRON INJ 2 MG/ML 2 ML VIAL IV PRN (01:33)
[2023-03-14] MEDS ORDERED: ALUMINUM/MAGNESIUM SUSP 30 ML UDC PO PRN (01:33)
[2023-03-14] MEDS ORDERED: PANTOprazole 40 MG in SYRINGE 0 ML IV ONE (01:33)
[2023-03-14] MEDS ORDERED: ACETAMINOPHEN 325 MG TAB PO PRN (01:33)
[2023-03-14] MEDS ORDERED: busPIRone 5 MG TAB PO PRN (01:33)
[2023-03-14 02:13] LABS: Magnesium 1.9 mg/dl (1.7-2.4)
[2023-03-14] MEDS: FLUoxetine HCL 20 MG CAP PO SCH (08:13)
[2023-03-14] MEDS: NSS + 20MEQ KCL 20 MEQ/1,000 ML BAG IV SCH ×2 (08:13→21:39)
[2023-03-14] MEDS: PANTOprazole 40 MG TAB PO SCH (08:13)
--- NOTE | 2023-03-14 10:29 | Electrocardiogram Report ---
Test Reason : Blood Pressure : / mmHG Vent. Rate : 102 BPM Atrial Rate : 102 BPM P-R Int : 126 ms QRS Dur : 072 ms QT Int : 318 ms P-R-T Axes : 035 047 034 degrees QTc Int : 414 ms Sinus tachycardia with occasional Premature ventricular complexes Abnormal ECG When compared with ECG of 08-NOV-2021 17:51, Premature ventricular complexes are now Present Confirmed by Grey Pozo ([id number]) on 03/14/2023 10:28:46 AM Referred By: REFERRED SELF Confirmed By:Grey Pozo
[2023-03-14] MEDS ORDERED: PANTOprazole 40 MG in SYRINGE 0 ML IV SCH (11:00)
--- NOTE | 2023-03-14 13:03 | Hospitalist Progress Note ---
Date of Service March 14, 2023 Assessment & Plan (1) Episode of unresponsiveness: Plan: Suspected orthostatic syncope related to a viral illness. Continue IV fluids for now. Telemetry. Supportive care Plan Continue IV fluids today, March 14. Telemetry. Serial labs. Probably home tomorrowMarch 15 Admission and Anticipated Discharge Date Admission Date: March 14, 2023 Subjective Alert and oriented. He appears to have had orthostatic syncope possibly related to a current viral illness. At this time he is asymptomatic. We will continue IV fluids and telemetry. Probably home tomorrow, March 15 Review of Systems 2 Review of Systems: Constitutional-no fever or chills ENT-no blurred vision, no double vision, no epistaxis, no sore throat Respiratory-no cough, no wheezing, no shortness of breath Cardiac-no palpitations, no chest pain, no syncope GI-no nausea, vomiting, diarrhea, melena, hematochezia -no urinary retention, no urinary incontinence, no dysuria, no hematuria Musculoskeletal-no joint pain, no muscle tenderness Skin-no bruising, no rashes, no pruritus Neuro-no isolated weakness, no paresthesia, no weakness Psych-no depression, no anxiety Physical Exam 2 Physical Exam: General-alert and oriented x3, no fevers, no chills HEENT-head atraumatic and normocephalic, pupils equal and reactive to light, extraocular muscles intact Neck-no lymphadenopathy or thyromegaly, trachea midline Chest-clear to auscultation percussion. No rales ,wheezing or rhonchi Cardiac-regular rate and rhythm, normal S1 and S2 Abdomen-normal bowel sounds, nontender, no hepatosplenomegaly Extremities-no cyanosis, clubbing, or edema Neuro-cranial nerves II through XII intact, motor and sensory function within normal limits, strength symmetrical, no focal deficits Psych-normal affect, normal mood Results & Data Results & Data Vital Signs (Past 12 Hours) Vital Signs Temp Pulse Pulse Resp BP Pulse Ox O2 Del Method 03/14/23 09:59 96 H 18 158/97 H 93 Room Air 03/14/23 07:23 84 03/14/23 06:17 74 18 118/78 95 Room Air 03/14/23 04:37 74 114/81 95 Room Air 03/14/23 03:32 69 18 137/89 95 Room Air 03/14/23 01:51 36.7 C 81 18 126/77 96 Room Air Laboratory Results 03/13/23 18:37 03/13/23 18:37 PG Care Time/CCT Total # of Minutes Spent Total Time Spent with Patient: Total time spent is greater than 50% in coordination of care (as documented) at patient's floor/unit and/or counseling patient: Coding Level of Care Code 76843 SUB INP/OBS CARE 3/50MIN Diagnoses Episode of unresponsiveness R40.4
[2023-03-15 06:30] LABS: Hematocrit (blood only) 45.7 % (42.0-52.0); Hemoglobin 15.4 g/dl (14.0-18.0); Mean Corpuscular Hemoglobin 28.2 pg (25.0-34.0); Mean Corpuscular Hgb Conc 33.7 g/dL (32.0-36.0); Mean Corpuscular Volume 83.5 fL (80.0-100.0); Mean Platelet Volume 10.1 fL (9.4-12.4); Platelet Count 248 K/uL (130-400); RDW Coefficient of Variation 13.2 % (11.5-14.5); RDW Standard Deviation 40.3 fL (36.4-46.3); Red Blood Count 5.47 M/uL (4.70-6.10); White Blood Count 10.13 K/ul (4.8-10.8)
[2023-03-15 06:38] LABS: BUN Creatinine Ratio 11.5 (10-20); Bilirubin Direct 0.1 mg/dl (0-0.2); Bilirubin,Total 0.8 mg/dl (0.2-1.0); Calcium 8.7 mg/dl (8.6-10.3); Creatinine Clr Calc Pharmacy 99.8 ml/min; Est GFR (African American) 96.4 ml/min; Est GFR (Non-African American) 83.2 ml/min; Potassium 3.8 mmol/L (3.5-5.1); Total Protein 6.2 gm/dl (6.0-8.3)
[2023-03-15] MEDS: FLUoxetine HCL 20 MG CAP PO SCH (08:07)
[2023-03-15] MEDS: NSS + 20MEQ KCL 20 MEQ/1,000 ML BAG IV SCH (08:07)
[2023-03-15] MEDS: PANTOprazole 40 MG TAB PO SCH (08:07)
--- NOTE | 2023-03-15 12:40 | Discharge Summary ---
Date of Service March 15, 2023 Admission HPI Per Admitting Provider Ryan Hussein is a 38-year-old male with history of psoriasis and anxiety presenting with an unresponsive episode. Patient reports that he was having waves of nausea throughout the day which were resolved by sitting down as well as episodes of dizziness. When he returned home from work this evening he sat down on the couch then became nauseated and lightheaded and fell over in the living room. His reports that he did lose consciousness briefly. No seizure activity reported. Patient presently complaining of epigastric pain. He has had vomiting as well with question of bloody emesis. Also with left-sided headache. He reports he is feeling exhausted with no energy. Patient denies chest pain, palpitations, visual changes or focal deficits. Denies fevers/chills. Principal Diagnosis Orthostatic hypotension causing syncope, suspected viral illness Discharge Exam General-alert and oriented x3, no fevers, no chills HEENT-head atraumatic and normocephalic, pupils equal and reactive to light, extraocular muscles intact Neck-no lymphadenopathy or thyromegaly, trachea midline Chest-clear to auscultation percussion. No rales ,wheezing or rhonchi Cardiac-regular rate and rhythm, normal S1 and S2 Abdomen-normal bowel sounds, nontender, no hepatosplenomegaly Extremities-no cyanosis, clubbing, or edema Neuro-cranial nerves II through XII intact, motor and sensory function within normal limits, strength symmetrical, no focal deficits Psych-normal affect, normal mood Discharge Data Allergies Allergy/AdvReac Type Severity Reaction Status Date / Time amoxicillin Allergy Unknown SEE COMMENT Verified 03/13/23 19:43 Cephalosporins Allergy Unknown CAN'T Verified 03/13/23 19:43 REMEMBER Sulfa (Sulfonamide Allergy Unknown CAN'T Verified 03/13/23 19:43 Antibiotics) REMEMBER Consultations 03/13/23 23:27 ED Decision to Admit Stat Ordered Studies 03/13/23 19:13 CT angio chest dissec wo/w con Stat CT head/brain wo con Stat Hospital Course (1) Episode of unresponsiveness: Suspected orthostatic syncope related to a viral illness. Treated while hospitalized with IV fluids. Now asymptomatic. Plan Home today, March 15 Total Time Total Time Spent Total Time Spent (In Minutes): 40-minute Discharge Plan Discharge Items Patient Disposition: Home - Self-Care Reason For Visit: UNRESPONSIVE EPISODE Discharge Diagnosis: Orthostatic hypotension causing syncope, suspected viral illness Activity: Resume your previous activity Non-emergency contact: Primary Care Provider Call non-emergency contact if: your symptoms worsen Follow-up/Referrals: Aura Apple MD [Primary Care Provider] - Diet: Regular Addtl Attending Provider Instructions: Stay well-hydrated. No new medications at this time Pending Studies at Discharge: No Stand-Alone Forms: My [facility] [place], Work/School Release, Smoking Cessation Medications and DC Order Prescriptions: Continued prednisone 10 mg tablet See Rx Instructions PO DAILY Qty: 30 0RF Rx Instructions: 40mg(4 tab)[id number],30mg(3tab)[id number],20mg(2tab)x3day,10mg(1tab)x3day clobetasol 0.05 % cream 1 applic topical BID PRN (Reason: Poison rose reaction) 14 Days Qty: 30 0RF Rx Instructions: apply to rash associated with poison rose twice a day nystatin 100,000 unit/gram powder See Rx Instructions topical .COMPLEX Qty: 60 1RF Rx Instructions: Apply a light dusting to groin folds and axilla q AM x 7-10 days topically; buspirone 10 mg tablet 10 - 30 mg PO QAM PRN (Reason: Anxiety) fluoxetine [Prozac] 10 mg capsule 20 mg PO QAM Rx Instructions: administer in the morning and at noon/midday Rx per psychiatry (Dr Stone) Discharge Orders: Discharge Order (Routine); Ordered 03/15/23 Ordered By: Zhen Rosen Admission Data Admit Date/Time: 03/14/23 00:26 Attending Provider: Zhen Rosen Admit Provider: Adele Santamaria Primary Care Provider: Aura Apple Other Providers: Adele Santamaria Coding Level of Care Code 32305 INP/OBS DISCH >30 MIN Diagnoses Episode of unresponsiveness R40.4
== END 2023-03-15 13:17 | disposition home or self-care (01) ==
LOC: EDINP 18:31 → ED 18:31 → SUATTDRO 03-14 00:26 → 2W 03-14 01:33
DX: Z88.8 Allergy status to other drugs, medicaments and biological substances; Z88.1 Allergy status to other antibiotic agents; Z88.2 Allergy status to sulfonamides; R40.4 Transient alteration of awareness; Z79.899 Other long term (current) drug therapy; R42 Dizziness and giddiness; Z87.891 Personal history of nicotine dependence; I95.1 Orthostatic hypotension